=== PATIENT | male | born 1950 | race Caucasian/White ===

== ENCOUNTER 2018-04-02 09:30 | Inpatient (IN) | payer OTHER ==
[~2018-04-02] VITALS: Ht 172.7 cm; Wt 95.3 kg
[2018-04-02] MEDS ORDERED: LISINOPRIL2.5 MG PO (12:25)
[2018-04-02] MEDS ORDERED: TOPROL XL25 M1 PO (12:25)
[2018-04-02] MEDS ORDERED: PLAVIX75 MG PO (12:26)
[2018-04-02] MEDS ORDERED: CRESTOR20 MG PO (12:26)
[2018-04-02] MEDS ORDERED: ASA81 MG PO (12:26)
[2018-04-02] MEDS ORDERED: ALLOPURINOL300 MG PO (12:27)
[2018-04-10] MEDS ORDERED: GABAPENTIN800 MG PO (09:17)
[2018-04-10] MEDS ORDERED: DOCUSATE SODIU100 MG PO (09:17)
[2018-04-10] MEDS ORDERED: AMOX-CLAV 875-1 EACH PO (09:18)
[2018-04-10] MEDS ORDERED: PERCOCET 5-3251 EACH PO (09:19)
[2018-04-10] MEDS ORDERED: CLONAZEPAM1 MG PO (09:19)
== END 2018-04-10 15:33 | disposition home or self-care (01) | DRG 455 ==
LOC: SURH 04-09 07:29 → O/R 04-09 07:29 → SURH 04-09 09:30
PROVIDERS: Orthopaedic Surgery Orthopaedic Surgery of the Spine
PROC: 0SG0071 Fusion of Lumbar Vertebral Joint with Autologous Tissue Substitute, Posterior Approach, Posterior Column, Open Approach (ICD-10-PCS; 2018-04-09)
PROC: 0ST20ZZ Resection of Lumbar Vertebral Disc, Open Approach (ICD-10-PCS; 2018-04-09)
PROC: 0SG00AJ Fusion of Lumbar Vertebral Joint with Interbody Fusion Device, Posterior Approach, Anterior Column, Open Approach (ICD-10-PCS; 2018-04-09)
PROC: 07DS3ZZ Extraction of Vertebral Bone Marrow, Percutaneous Approach (ICD-10-PCS; 2018-04-09)
PROC: 0SG00A0 Fusion of Lumbar Vertebral Joint with Interbody Fusion Device, Anterior Approach, Anterior Column, Open Approach (ICD-10-PCS; principal; 2018-04-09 09:45)
DX: M96.1 Postlaminectomy syndrome, not elsewhere classified (principal); M51.36 Other intervertebral disc degeneration, lumbar region; M48.062 Spinal stenosis, lumbar region with neurogenic claudication; I10 Essential (primary) hypertension; I25.10 Atherosclerotic heart disease of native coronary artery without angina pectoris; M10.9 Gout, unspecified; Y83.8 Other surgical procedures as the cause of abnormal reaction of the patient, or of later complication, without mention of misadventure at the time of the procedure; Z95.810 Presence of automatic (implantable) cardiac defibrillator

== ENCOUNTER 2021-04-22 07:04 | Outpatient (CLI) | payer OTHER ==
[~2021-04-22 07:04] MED LIST: ALLOPURINOL300 MG PO; AMOX-CLAV 875-1 EACH PO; ASA81 MG PO; CLONAZEPAM1 MG PO; CRESTOR20 MG PO; DOCUSATE SODIU100 MG PO; GABAPENTIN800 MG PO; LISINOPRIL2.5 MG PO; PERCOCET 5-3251 EACH PO; PLAVIX75 MG PO; TOPROL XL25 M1 PO
== END 2021-04-22 07:23 | disposition home or self-care (01) ==
LOC: TOM 07:04
PROVIDERS: ATTEND Internal Medicine Gastroenterology
DX: K57.30 Diverticulosis of large intestine without perforation or abscess without bleeding (principal); R19.5 Other fecal abnormalities